=== PATIENT | female | born 1955 | race Caucasian/White ===

== ENCOUNTER 2019-11-15 15:27 | Inpatient (IN) | payer MEDICARE, OTHER ==
[~2019-11-15] VITALS: Ht 149.9 cm; Wt 45.4 kg
[2019-11-15] MEDS ORDERED: ONDANSETRON HCL 4 MG TABLET PO PRN (17:45)
[2019-11-15] MEDS ORDERED: MAGNESIUM HYDROXIDE SUSPENSION 30 ML UDCUP PO PRN (17:45)
[2019-11-15 18:00] VITALS: BP 156/95
[2019-11-15] MEDS: PANTOPRAZOLE SODIUM 40 MG DR TABLET PO SCH (20:35)
[2019-11-15] MEDS: DOCUSATE SODIUM 100 MG CAPSULE PO SCH (20:35)
[2019-11-15] MEDS: SENNA 187 MG TABLET PO SCH (20:35)
[2019-11-15 20:41] VITALS: BP 158/84
[2019-11-15] MEDS ORDERED: AmLODIPine BESYLATE 2.5 MG TABLET PO SCH (21:00)
[2019-11-15] MEDS ORDERED: MELATONIN 3 MG TABLET PO PRN (21:15)
[2019-11-15 22:25] VITALS: BP 150/93
[2019-11-16 00:25] VITALS: BP 154/76
[2019-11-16 08:40] VITALS: BP 156/66
[2019-11-16] MEDS: MULTIVITAMINS WITH MINERALS, THERAPEUTIC TABLET PO SCH (08:44)
[2019-11-16] MEDS: LISINOPRIL 20 MG TABLET PO SCH (08:44)
[2019-11-16] MEDS: OMEGA-3/DHA/EPA/FISH OIL 1,000 MG CAPSULE PO SCH (08:44)
[2019-11-16] MEDS: DOCUSATE SODIUM 100 MG CAPSULE PO SCH ×2 (08:44→21:02)
[2019-11-16] MEDS: ASPIRIN 325 MG EC TABLET PO SCH (08:44)
[2019-11-16 08:45] LABS: BASOPHILS % (AUTO) 0.9 % (0.0-2.0); EOSINOPHILS % (AUTO) 1.6 % (1.0-6.0); HEMATOCRIT 42.3 % (36-46); LYMPHOCYTES # (AUTO) 2.1 K/uL (1.0-4.8); LYMPHOCYTES % (AUTO) 22.8 % (22.0-44.0); MEAN CORPUSCULAR HEMOGLOBIN 27.2 pg (26.0-34.0); MEAN CORPUSCULAR HGB CONC 33.1 G/dL (31.0-37.0); MEAN CORPUSCULAR VOLUME 82 fL (80-100); MONOCYTES # (AUTO) 0.6 K/uL (0.1-1.0); MONOCYTES % (AUTO) 6.2 % (2.0-9.0); NEUTROPHILS # (AUTO) 6.2 K/uL (1.8-7.7); NEUTROPHILS % (AUTO) 68.5 % (40.0-70.0); PLATELET COUNT (AUTO) 254 K/uL (150-450); RED BLOOD CELL COUNT(AUTO) 5.15 MIL/uL (4.00-5.20); RED CELL DISTRIBUTION WIDTH 13.8 % (11.5-14.5)
[2019-11-16] MEDS: ENOXAPARIN SODIUM 40 MG/0.4 ML PF SYRINGE SQ SCH (08:45)
[2019-11-16] MEDS: POLYETHYLENE GLYCOL 3350 17 GM PACKET PO SCH (08:45)
[2019-11-16] MEDS: CHOLECALCIFEROL (VIT D3) 2,000 UNITS [50 MCG] TABLET PO SCH (08:45)
[2019-11-16 09:16] LABS: ALANINE AMINOTRANSFERASE 70 U/L (12-78); ALBUMIN 3.3 g/dL (3.4-5.0); ALKALINE PHOSPHATASE 74 U/L (46-116); ANION GAP 5 mmol/L (8-16); ASPARTATE AMINOTRANSFERASE 52 U/L (15-37); BILIRUBIN,TOTAL 0.6 mg/dL (0.1-1.0); CALCIUM, TOTAL 9.7 mg/dL (8.8-10.5); CARBON DIOXIDE 27 mmol/L (22-29); CHLORIDE 104 mmol/L (98-107); CREATININE 0.86 mg/dL (0.60-1.30); GLOMERULAR FILTR. RATE CALC > 60 mL/min (>60); GLUCOSE,RANDOM 116 mg/dL (70-110); POTASSIUM 3.7 mmol/L (3.5-5.1); SODIUM SERUM 136 mmol/L (136-145); TOTAL PROTEIN, SERUM 6.4 g/dL (6.4-8.2); UREA NITROGEN, BLOOD 18 mg/dL (7-18)
[2019-11-16 16:00] VITALS: BP 156/90
[2019-11-16 16:35] VITALS: BP 156/90
[2019-11-16 20:47] VITALS: BP 175/82
[2019-11-16] MEDS: SENNA 187 MG TABLET PO SCH (21:02)
[2019-11-16] MEDS: AmLODIPine BESYLATE 5 MG TABLET PO SCH (21:02)
[2019-11-16] MEDS: PANTOPRAZOLE SODIUM 40 MG DR TABLET PO SCH (21:02)
[2019-11-16 22:13] VITALS: BP 173/81
[2019-11-17 04:00] VITALS: BP 173/76
[2019-11-17 06:00] VITALS: BP 126/71
[2019-11-17 07:54] VITALS: BP 169/76
[2019-11-17] MEDS: DOCUSATE SODIUM 100 MG CAPSULE PO SCH ×2 (08:30→20:01)
[2019-11-17] MEDS: OMEGA-3/DHA/EPA/FISH OIL 1,000 MG CAPSULE PO SCH (08:30)
[2019-11-17] MEDS: LISINOPRIL 20 MG TABLET PO SCH (08:30)
[2019-11-17] MEDS: MULTIVITAMINS WITH MINERALS, THERAPEUTIC TABLET PO SCH (08:30)
[2019-11-17] MEDS: ASPIRIN 325 MG EC TABLET PO SCH (08:30)
[2019-11-17] MEDS: CHOLECALCIFEROL (VIT D3) 2,000 UNITS [50 MCG] TABLET PO SCH (08:31)
[2019-11-17] MEDS: ENOXAPARIN SODIUM 40 MG/0.4 ML PF SYRINGE SQ SCH (08:31)
[2019-11-17] MEDS: POLYETHYLENE GLYCOL 3350 17 GM PACKET PO SCH (08:31)
[2019-11-17 15:00] VITALS: BP 150/69
[2019-11-17] MEDS: ACETAMINOPHEN 325 MG TABLET PO PRN (15:29)
[2019-11-17] MEDS: AmLODIPine BESYLATE 5 MG TABLET PO SCH (20:01)
[2019-11-17] MEDS: MELATONIN 5 MG TABLET PO PRN (20:01)
[2019-11-17] MEDS: SENNA 187 MG TABLET PO SCH (20:01)
[2019-11-17] MEDS: PANTOPRAZOLE SODIUM 40 MG DR TABLET PO SCH (20:01)
[2019-11-18 00:36] VITALS: BP 165/76
[2019-11-18 05:03] VITALS: BP 145/71
[2019-11-18] MEDS: POLYETHYLENE GLYCOL 3350 17 GM PACKET PO SCH (08:53)
[2019-11-18] MEDS: DOCUSATE SODIUM 100 MG CAPSULE PO SCH ×2 (08:53→20:53)
[2019-11-18] MEDS: OMEGA-3/DHA/EPA/FISH OIL 1,000 MG CAPSULE PO SCH (08:53)
[2019-11-18] MEDS: LISINOPRIL 20 MG TABLET PO SCH (08:53)
[2019-11-18] MEDS: ENOXAPARIN SODIUM 40 MG/0.4 ML PF SYRINGE SQ SCH (08:54)
[2019-11-18] MEDS: MULTIVITAMINS WITH MINERALS, THERAPEUTIC TABLET PO SCH (08:54)
[2019-11-18] MEDS: CHOLECALCIFEROL (VIT D3) 2,000 UNITS [50 MCG] TABLET PO SCH (08:54)
[2019-11-18] MEDS: ASPIRIN 325 MG EC TABLET PO SCH (08:54)
[2019-11-18 09:23] VITALS: BP 146/71
[2019-11-18 15:30] VITALS: BP 133/73
[2019-11-18 20:50] VITALS: BP 159/92
[2019-11-18] MEDS: MELATONIN 5 MG TABLET PO PRN (20:53)
[2019-11-18] MEDS: SENNA 187 MG TABLET PO SCH (20:53)
[2019-11-18] MEDS: AmLODIPine BESYLATE 5 MG TABLET PO SCH (20:53)
[2019-11-18] MEDS: PANTOPRAZOLE SODIUM 40 MG DR TABLET PO SCH (20:53)
[2019-11-19] VITALS (7 sets, daily range): BP systolic 137–172; BP diastolic 73–89
[2019-11-19] MEDS: HydrALAZINE HCL 25 MG TABLET PO PRN (00:45)
[2019-11-19] MEDS: ASPIRIN 325 MG EC TABLET PO SCH (08:14)
[2019-11-19] MEDS: LISINOPRIL 20 MG TABLET PO SCH (08:14)
[2019-11-19] MEDS: DOCUSATE SODIUM 100 MG CAPSULE PO SCH ×2 (08:14→20:24)
[2019-11-19] MEDS: CHOLECALCIFEROL (VIT D3) 2,000 UNITS [50 MCG] TABLET PO SCH (08:14)
[2019-11-19] MEDS: MULTIVITAMINS WITH MINERALS, THERAPEUTIC TABLET PO SCH (08:14)
[2019-11-19] MEDS: OMEGA-3/DHA/EPA/FISH OIL 1,000 MG CAPSULE PO SCH (08:14)
[2019-11-19] MEDS: POLYETHYLENE GLYCOL 3350 17 GM PACKET PO SCH (08:14)
[2019-11-19] MEDS: ENOXAPARIN SODIUM 40 MG/0.4 ML PF SYRINGE SQ SCH (08:15)
[2019-11-19] MEDS: AmLODIPine BESYLATE 10 MG TABLET PO SCH (20:24)
[2019-11-19] MEDS: SENNA 187 MG TABLET PO SCH (20:24)
[2019-11-19] MEDS: SIMVASTATIN 40 MG TABLET PO SCH (20:24)
[2019-11-19] MEDS: PANTOPRAZOLE SODIUM 40 MG DR TABLET PO SCH (20:24)
[2019-11-19] MEDS: MELATONIN 5 MG TABLET PO PRN (20:24)
[2019-11-20 07:21] VITALS: BP 151/72
[2019-11-20] MEDS: ASPIRIN 325 MG EC TABLET PO SCH (08:09)
[2019-11-20] MEDS: DOCUSATE SODIUM 100 MG CAPSULE PO SCH ×2 (08:10→21:19)
[2019-11-20] MEDS: MULTIVITAMINS WITH MINERALS, THERAPEUTIC TABLET PO SCH (08:10)
[2019-11-20] MEDS: OMEGA-3/DHA/EPA/FISH OIL 1,000 MG CAPSULE PO SCH (08:10)
[2019-11-20] MEDS: LISINOPRIL 20 MG TABLET PO SCH (08:10)
[2019-11-20] MEDS: CHOLECALCIFEROL (VIT D3) 2,000 UNITS [50 MCG] TABLET PO SCH (08:10)
[2019-11-20] MEDS: ENOXAPARIN SODIUM 40 MG/0.4 ML PF SYRINGE SQ SCH (08:10)
[2019-11-20] MEDS: POLYETHYLENE GLYCOL 3350 17 GM PACKET PO SCH (08:10)
[2019-11-20] MEDS: HydrALAZINE HCL 25 MG TABLET PO PRN (16:04)
[2019-11-20 16:28] VITALS: BP 175/84
[2019-11-20 18:00] VITALS: BP 157/71
[2019-11-20] MEDS: SENNA 187 MG TABLET PO SCH (21:19)
[2019-11-20] MEDS: SIMVASTATIN 40 MG TABLET PO SCH (21:19)
[2019-11-20] MEDS: MELATONIN 5 MG TABLET PO PRN (21:19)
[2019-11-20] MEDS: PANTOPRAZOLE SODIUM 40 MG DR TABLET PO SCH (21:19)
[2019-11-20] MEDS: AmLODIPine BESYLATE 10 MG TABLET PO SCH (21:19)
[2019-11-21 00:12] VITALS: BP 160/72
[2019-11-21 07:30] VITALS: BP 148/77
[2019-11-21] MEDS: ASPIRIN 325 MG EC TABLET PO SCH (08:22)
[2019-11-21] MEDS: MULTIVITAMINS WITH MINERALS, THERAPEUTIC TABLET PO SCH (08:23)
[2019-11-21] MEDS: OMEGA-3/DHA/EPA/FISH OIL 1,000 MG CAPSULE PO SCH (08:23)
[2019-11-21] MEDS: LISINOPRIL 20 MG TABLET PO SCH (08:23)
[2019-11-21] MEDS: DOCUSATE SODIUM 100 MG CAPSULE PO SCH ×2 (08:23→20:45)
[2019-11-21] MEDS: POLYETHYLENE GLYCOL 3350 17 GM PACKET PO SCH (08:23)
[2019-11-21] MEDS: ENOXAPARIN SODIUM 40 MG/0.4 ML PF SYRINGE SQ SCH (08:23)
[2019-11-21] MEDS: CHOLECALCIFEROL (VIT D3) 2,000 UNITS [50 MCG] TABLET PO SCH (08:23)
[2019-11-21] MEDS ORDERED: LORazepam 1 MG TABLET PO PRN (12:00)
[2019-11-21 15:00] VITALS: BP 145/77
[2019-11-21] MEDS: AmLODIPine BESYLATE 10 MG TABLET PO SCH (20:44)
[2019-11-21] MEDS: MELATONIN 5 MG TABLET PO PRN (20:45)
[2019-11-21] MEDS: PANTOPRAZOLE SODIUM 40 MG DR TABLET PO SCH (20:45)
[2019-11-21] MEDS: SENNA 187 MG TABLET PO SCH (20:45)
[2019-11-21] MEDS: SIMVASTATIN 40 MG TABLET PO SCH (20:45)
[2019-11-21 20:46] VITALS: BP 151/78
[2019-11-22 03:00] VITALS: BP 126/70
[2019-11-22 07:40] VITALS: BP 143/71
[2019-11-22] MEDS: LISINOPRIL 20 MG TABLET PO SCH (08:36)
[2019-11-22] MEDS: MULTIVITAMINS WITH MINERALS, THERAPEUTIC TABLET PO SCH (08:36)
[2019-11-22] MEDS: OMEGA-3/DHA/EPA/FISH OIL 1,000 MG CAPSULE PO SCH (08:36)
[2019-11-22] MEDS: DOCUSATE SODIUM 100 MG CAPSULE PO SCH ×2 (08:36→20:05)
[2019-11-22] MEDS: ENOXAPARIN SODIUM 40 MG/0.4 ML PF SYRINGE SQ SCH (08:36)
[2019-11-22] MEDS: ASPIRIN 325 MG EC TABLET PO SCH (08:36)
[2019-11-22] MEDS: POLYETHYLENE GLYCOL 3350 17 GM PACKET PO SCH (08:38)
[2019-11-22] MEDS: CHOLECALCIFEROL (VIT D3) 2,000 UNITS [50 MCG] TABLET PO SCH (08:38)
[2019-11-22] MEDS: FLUoxetine HCL 10 MG CAPSULE PO SCH (12:24)
[2019-11-22 16:45] VITALS: BP 155/76
[2019-11-22] MEDS: PANTOPRAZOLE SODIUM 40 MG DR TABLET PO SCH (20:05)
[2019-11-22] MEDS: AmLODIPine BESYLATE 10 MG TABLET PO SCH (20:05)
[2019-11-22] MEDS: SENNA 187 MG TABLET PO SCH (20:05)
[2019-11-22] MEDS: SIMVASTATIN 40 MG TABLET PO SCH (20:05)
[2019-11-22] MEDS: MELATONIN 5 MG TABLET PO PRN (20:05)
[2019-11-22 21:25] VITALS: BP 152/78
[2019-11-23 01:18] VITALS: BP 131/72
[2019-11-23 07:30] VITALS: BP 115/68
[2019-11-23] MEDS: FLUoxetine HCL 10 MG CAPSULE PO SCH (07:47)
[2019-11-23] MEDS: MULTIVITAMINS WITH MINERALS, THERAPEUTIC TABLET PO SCH (07:47)
[2019-11-23] MEDS: OMEGA-3/DHA/EPA/FISH OIL 1,000 MG CAPSULE PO SCH (07:47)
[2019-11-23] MEDS: ENOXAPARIN SODIUM 40 MG/0.4 ML PF SYRINGE SQ SCH (07:47)
[2019-11-23] MEDS: CHOLECALCIFEROL (VIT D3) 2,000 UNITS [50 MCG] TABLET PO SCH (07:47)
[2019-11-23] MEDS: ASPIRIN 325 MG EC TABLET PO SCH (07:47)
[2019-11-23] MEDS: LISINOPRIL 20 MG TABLET PO SCH (07:47)
[2019-11-23] MEDS: DOCUSATE SODIUM 100 MG CAPSULE PO SCH ×2 (07:48→21:08)
[2019-11-23] MEDS: POLYETHYLENE GLYCOL 3350 17 GM PACKET PO SCH (07:48)
[2019-11-23 16:01] VITALS: BP 161/84
[2019-11-23 21:07] VITALS: BP 146/70
[2019-11-23] MEDS: AmLODIPine BESYLATE 10 MG TABLET PO SCH (21:08)
[2019-11-23] MEDS: SIMVASTATIN 40 MG TABLET PO SCH (21:08)
[2019-11-23] MEDS: PANTOPRAZOLE SODIUM 40 MG DR TABLET PO SCH (21:08)
[2019-11-23] MEDS: SENNA 187 MG TABLET PO SCH (21:09)
[2019-11-23] MEDS: MELATONIN 5 MG TABLET PO PRN (21:09)
[2019-11-24] VITALS: BP 140/65
[2019-11-24 07:30] VITALS: BP 137/70
[2019-11-24] MEDS: POLYETHYLENE GLYCOL 3350 17 GM PACKET PO SCH (09:00)
[2019-11-24] MEDS: ASPIRIN 325 MG EC TABLET PO SCH (09:34)
[2019-11-24] MEDS: OMEGA-3/DHA/EPA/FISH OIL 1,000 MG CAPSULE PO SCH (09:35)
[2019-11-24] MEDS: CHOLECALCIFEROL (VIT D3) 2,000 UNITS [50 MCG] TABLET PO SCH (09:35)
[2019-11-24] MEDS: ENOXAPARIN SODIUM 40 MG/0.4 ML PF SYRINGE SQ SCH (09:35)
[2019-11-24] MEDS: MULTIVITAMINS WITH MINERALS, THERAPEUTIC TABLET PO SCH (09:35)
[2019-11-24] MEDS: FLUoxetine HCL 10 MG CAPSULE PO SCH (09:35)
[2019-11-24] MEDS: DOCUSATE SODIUM 100 MG CAPSULE PO SCH ×2 (09:35→20:19)
[2019-11-24] MEDS: LISINOPRIL 20 MG TABLET PO SCH (09:35)
[2019-11-24 15:23] VITALS: BP 142/67
[2019-11-24] MEDS: PANTOPRAZOLE SODIUM 40 MG DR TABLET PO SCH (20:19)
[2019-11-24] MEDS: MELATONIN 5 MG TABLET PO PRN (20:19)
[2019-11-24] MEDS: SENNA 187 MG TABLET PO SCH (20:19)
[2019-11-24] MEDS: SIMVASTATIN 40 MG TABLET PO SCH (20:19)
[2019-11-24] MEDS: AmLODIPine BESYLATE 10 MG TABLET PO SCH (20:20)
[2019-11-24 23:30] VITALS: BP 145/88
[2019-11-25 08:09] VITALS: BP 129/73
[2019-11-25] MEDS: CHOLECALCIFEROL (VIT D3) 2,000 UNITS [50 MCG] TABLET PO SCH (08:10)
[2019-11-25] MEDS: LISINOPRIL 20 MG TABLET PO SCH (08:10)
[2019-11-25] MEDS: DOCUSATE SODIUM 100 MG CAPSULE PO SCH ×2 (08:10→21:08)
[2019-11-25] MEDS: FLUoxetine HCL 10 MG CAPSULE PO SCH (08:10)
[2019-11-25] MEDS: POLYETHYLENE GLYCOL 3350 17 GM PACKET PO SCH (08:10)
[2019-11-25] MEDS: ENOXAPARIN SODIUM 40 MG/0.4 ML PF SYRINGE SQ SCH (08:10)
[2019-11-25] MEDS: OMEGA-3/DHA/EPA/FISH OIL 1,000 MG CAPSULE PO SCH (08:10)
[2019-11-25] MEDS: MULTIVITAMINS WITH MINERALS, THERAPEUTIC TABLET PO SCH (08:10)
[2019-11-25] MEDS: ASPIRIN 325 MG EC TABLET PO SCH (08:10)
[2019-11-25] MEDS ORDERED: DOCU-275 PO (11:07)
[2019-11-25] MEDS ORDERED: OMEG-135 PO (11:07)
[2019-11-25] MEDS ORDERED: ASPI-1149 PO (11:07)
[2019-11-25] MEDS ORDERED: POLY17PO47 PO (11:16)
[2019-11-25] MEDS ORDERED: MULT-1119 PO (11:16)
[2019-11-25] MEDS ORDERED: PROZ10 PO (11:16)
[2019-11-25] MEDS ORDERED: PANT-31 PO (11:20)
[2019-11-25] MEDS ORDERED: AMLO-258 PO (11:20)
[2019-11-25] MEDS ORDERED: LISI-662 PO (11:20)
[2019-11-25] MEDS ORDERED: CHOL200016 PO (11:20)
[2019-11-25] MEDS ORDERED: SIMV-261 PO (11:20)
[2019-11-25 16:08] VITALS: BP 132/66
[2019-11-25 21:00] VITALS: BP 152/73
[2019-11-25] MEDS: SENNA 187 MG TABLET PO SCH (21:08)
[2019-11-25] MEDS: PANTOPRAZOLE SODIUM 40 MG DR TABLET PO SCH (21:08)
[2019-11-25] MEDS: AmLODIPine BESYLATE 10 MG TABLET PO SCH (21:09)
[2019-11-25] MEDS: SIMVASTATIN 40 MG TABLET PO SCH (21:09)
[2019-11-25] MEDS: MELATONIN 5 MG TABLET PO PRN (21:12)
[2019-11-26] VITALS: BP 127/77
[2019-11-26 07:22] VITALS: BP 126/73
[2019-11-26] MEDS: OMEGA-3/DHA/EPA/FISH OIL 1,000 MG CAPSULE PO SCH (07:43)
[2019-11-26] MEDS: MULTIVITAMINS WITH MINERALS, THERAPEUTIC TABLET PO SCH (07:44)
[2019-11-26] MEDS: CHOLECALCIFEROL (VIT D3) 2,000 UNITS [50 MCG] TABLET PO SCH (07:44)
[2019-11-26] MEDS: ENOXAPARIN SODIUM 40 MG/0.4 ML PF SYRINGE SQ SCH (07:44)
[2019-11-26] MEDS: FLUoxetine HCL 10 MG CAPSULE PO SCH (07:44)
[2019-11-26] MEDS: POLYETHYLENE GLYCOL 3350 17 GM PACKET PO SCH (07:44)
[2019-11-26] MEDS: ASPIRIN 325 MG EC TABLET PO SCH (07:44)
[2019-11-26] MEDS: LISINOPRIL 20 MG TABLET PO SCH (07:44)
[2019-11-26] MEDS: DOCUSATE SODIUM 100 MG CAPSULE PO SCH ×2 (07:44→21:19)
[2019-11-26] MEDS: ACETAMINOPHEN 325 MG TABLET PO PRN (17:42)
[2019-11-26 17:45] VITALS: BP 129/68
[2019-11-26] MEDS: SENNA 187 MG TABLET PO SCH (21:19)
[2019-11-26] MEDS: PANTOPRAZOLE SODIUM 40 MG DR TABLET PO SCH (21:19)
[2019-11-26] MEDS: AmLODIPine BESYLATE 10 MG TABLET PO SCH (21:19)
[2019-11-26] MEDS: SIMVASTATIN 40 MG TABLET PO SCH (21:19)
[2019-11-26] MEDS: MELATONIN 5 MG TABLET PO PRN (21:19)
[2019-11-27 02:38] VITALS: BP 127/66
[2019-11-27 08:43] VITALS: BP 121/73
[2019-11-27] MEDS: CHOLECALCIFEROL (VIT D3) 2,000 UNITS [50 MCG] TABLET PO SCH (08:52)
[2019-11-27] MEDS: ENOXAPARIN SODIUM 40 MG/0.4 ML PF SYRINGE SQ SCH (08:53)
[2019-11-27] MEDS: DOCUSATE SODIUM 100 MG CAPSULE PO SCH ×2 (08:53→20:30)
[2019-11-27] MEDS: FLUoxetine HCL 10 MG CAPSULE PO SCH (08:53)
[2019-11-27] MEDS: OMEGA-3/DHA/EPA/FISH OIL 1,000 MG CAPSULE PO SCH (08:53)
[2019-11-27] MEDS: POLYETHYLENE GLYCOL 3350 17 GM PACKET PO SCH (08:53)
[2019-11-27] MEDS: ASPIRIN 325 MG EC TABLET PO SCH (08:53)
[2019-11-27] MEDS: MULTIVITAMINS WITH MINERALS, THERAPEUTIC TABLET PO SCH (08:53)
[2019-11-27] MEDS: LISINOPRIL 20 MG TABLET PO SCH (08:53)
[2019-11-27 15:00] VITALS: BP 135/75
[2019-11-27 20:27] VITALS: BP 137/70
[2019-11-27] MEDS: SENNA 187 MG TABLET PO SCH (20:30)
[2019-11-27] MEDS: MELATONIN 5 MG TABLET PO PRN (20:30)
[2019-11-27] MEDS: SIMVASTATIN 40 MG TABLET PO SCH (20:31)
[2019-11-27] MEDS: AmLODIPine BESYLATE 10 MG TABLET PO SCH (20:31)
[2019-11-27] MEDS: PANTOPRAZOLE SODIUM 40 MG DR TABLET PO SCH (20:31)
[2019-11-28 01:19] VITALS: BP 146/73
[2019-11-28 07:15] LABS: BASOPHILS % (AUTO) 2.6 % (0.0-2.0); EOSINOPHILS % (AUTO) 6.2 % (1.0-6.0); HEMATOCRIT 38.8 % (36-46); HEMOGLOBIN 12.8 g/dL (12.0-16.0); LYMPHOCYTES # (AUTO) 1.2 K/uL (1.0-4.8); LYMPHOCYTES % (AUTO) 20.5 % (22.0-44.0); MEAN CORPUSCULAR HEMOGLOBIN 27.4 pg (26.0-34.0); MEAN CORPUSCULAR VOLUME 83 fL (80-100); MONOCYTES # (AUTO) 0.5 K/uL (0.1-1.0); NEUTROPHILS # (AUTO) 3.8 K/uL (1.8-7.7); NEUTROPHILS % (AUTO) 62.7 % (40.0-70.0); PLATELET COUNT (AUTO) 277 K/uL (150-450); RED BLOOD CELL COUNT(AUTO) 4.67 MIL/uL (4.00-5.20); RED CELL DISTRIBUTION WIDTH 14.1 % (11.5-14.5)
[2019-11-28 07:22] LABS: ALANINE AMINOTRANSFERASE 41 U/L (12-78); ALKALINE PHOSPHATASE 84 U/L (46-116); ANION GAP 5 mmol/L (8-16); ASPARTATE AMINOTRANSFERASE 32 U/L (15-37); BILIRUBIN,TOTAL 0.3 mg/dL (0.1-1.0); CALCIUM, TOTAL 9.6 mg/dL (8.8-10.5); CARBON DIOXIDE 32 mmol/L (22-29); CHLORIDE 108 mmol/L (98-107); CREATININE 0.73 mg/dL (0.60-1.30); GLOMERULAR FILTR. RATE CALC > 60 mL/min (>60); GLUCOSE,RANDOM 118 mg/dL (70-110); POTASSIUM 3.1 mmol/L (3.5-5.1); SODIUM SERUM 145 mmol/L (136-145); TOTAL PROTEIN, SERUM 6.3 g/dL (6.4-8.2); UREA NITROGEN, BLOOD 8 mg/dL (7-18)
[2019-11-28 08:23] VITALS: BP 134/69
[2019-11-28] MEDS: MULTIVITAMINS WITH MINERALS, THERAPEUTIC TABLET PO SCH (08:27)
[2019-11-28] MEDS: OMEGA-3/DHA/EPA/FISH OIL 1,000 MG CAPSULE PO SCH (08:27)
[2019-11-28] MEDS: DOCUSATE SODIUM 100 MG CAPSULE PO SCH ×2 (08:28→21:00)
[2019-11-28] MEDS: LISINOPRIL 20 MG TABLET PO SCH (08:28)
[2019-11-28] MEDS: CHOLECALCIFEROL (VIT D3) 2,000 UNITS [50 MCG] TABLET PO SCH (08:29)
[2019-11-28] MEDS: FLUoxetine HCL 10 MG CAPSULE PO SCH (08:29)
[2019-11-28] MEDS: ENOXAPARIN SODIUM 40 MG/0.4 ML PF SYRINGE SQ SCH (08:30)
[2019-11-28] MEDS: ASPIRIN 325 MG EC TABLET PO SCH (08:32)
[2019-11-28] MEDS: POLYETHYLENE GLYCOL 3350 17 GM PACKET PO SCH (08:32)
[2019-11-28] MEDS ORDERED: POTASSIUM CHLORIDE 10 MEQ ER TABLET PO ONE (11:30)
[2019-11-28 18:49] VITALS: BP 145/76
[2019-11-28] MEDS: MELATONIN 5 MG TABLET PO PRN (21:00)
[2019-11-28] MEDS: SIMVASTATIN 40 MG TABLET PO SCH (21:00)
[2019-11-28] MEDS: PANTOPRAZOLE SODIUM 40 MG DR TABLET PO SCH (21:00)
[2019-11-28] MEDS: SENNA 187 MG TABLET PO SCH (21:00)
[2019-11-28] MEDS: AmLODIPine BESYLATE 10 MG TABLET PO SCH (21:00)
[2019-11-29 00:38] VITALS: BP 148/78
[2019-11-29 07:00] VITALS: BP 142/63
[2019-11-29] MEDS: OMEGA-3/DHA/EPA/FISH OIL 1,000 MG CAPSULE PO SCH (08:05)
[2019-11-29] MEDS: ASPIRIN 325 MG EC TABLET PO SCH (08:05)
[2019-11-29] MEDS: LISINOPRIL 20 MG TABLET PO SCH (08:06)
[2019-11-29] MEDS: ENOXAPARIN SODIUM 40 MG/0.4 ML PF SYRINGE SQ SCH (08:06)
[2019-11-29] MEDS: CHOLECALCIFEROL (VIT D3) 2,000 UNITS [50 MCG] TABLET PO SCH (08:06)
[2019-11-29] MEDS: FLUoxetine HCL 10 MG CAPSULE PO SCH (08:06)
[2019-11-29] MEDS: MULTIVITAMINS WITH MINERALS, THERAPEUTIC TABLET PO SCH (08:06)
[2019-11-29] MEDS: POTASSIUM CHLORIDE 20 MEQ ER TABLET PO SCH (12:26)
[2019-11-29] MEDS: POLYETHYLENE GLYCOL 3350 17 GM PACKET PO SCH (13:07)
[2019-11-29] MEDS: DOCUSATE SODIUM 100 MG CAPSULE PO SCH ×2 (13:07→20:28)
[2019-11-29 18:47] VITALS: BP 155/84
[2019-11-29] MEDS: AmLODIPine BESYLATE 10 MG TABLET PO SCH (20:28)
[2019-11-29] MEDS: SENNA 187 MG TABLET PO SCH (20:28)
[2019-11-29] MEDS: PANTOPRAZOLE SODIUM 40 MG DR TABLET PO SCH (20:30)
[2019-11-29] MEDS: MELATONIN 5 MG TABLET PO PRN (20:31)
[2019-11-29] MEDS: SIMVASTATIN 40 MG TABLET PO SCH (20:32)
[2019-11-29 23:30] VITALS: BP 126/62
[2019-11-30 09:00] VITALS: BP 148/70
[2019-11-30] MEDS: FLUoxetine HCL 10 MG CAPSULE PO SCH (09:15)
[2019-11-30] MEDS: MULTIVITAMINS WITH MINERALS, THERAPEUTIC TABLET PO SCH (09:15)
[2019-11-30] MEDS: POTASSIUM CHLORIDE 20 MEQ ER TABLET PO SCH (09:15)
[2019-11-30] MEDS: CHOLECALCIFEROL (VIT D3) 2,000 UNITS [50 MCG] TABLET PO SCH (09:15)
[2019-11-30] MEDS: OMEGA-3/DHA/EPA/FISH OIL 1,000 MG CAPSULE PO SCH (09:15)
[2019-11-30] MEDS: DOCUSATE SODIUM 100 MG CAPSULE PO SCH ×2 (09:15→21:11)
[2019-11-30] MEDS: ASPIRIN 325 MG EC TABLET PO SCH (09:16)
[2019-11-30] MEDS: LISINOPRIL 20 MG TABLET PO SCH (09:16)
[2019-11-30] MEDS: ENOXAPARIN SODIUM 40 MG/0.4 ML PF SYRINGE SQ SCH (09:17)
[2019-11-30] MEDS: POLYETHYLENE GLYCOL 3350 17 GM PACKET PO SCH (09:17)
[2019-11-30 15:30] VITALS: BP 126/65
[2019-11-30 20:30] VITALS: BP 139/69
[2019-11-30] MEDS: AmLODIPine BESYLATE 10 MG TABLET PO SCH (21:11)
[2019-11-30] MEDS: PANTOPRAZOLE SODIUM 40 MG DR TABLET PO SCH (21:11)
[2019-11-30] MEDS: SENNA 187 MG TABLET PO SCH (21:11)
[2019-11-30] MEDS: SIMVASTATIN 40 MG TABLET PO SCH (21:11)
[2019-11-30] MEDS: MELATONIN 5 MG TABLET PO PRN (21:11)
[2019-11-30 23:26] VITALS: BP_SYST 0
[2019-12-01 02:57] VITALS: BP 144/66
[2019-12-01 07:02] VITALS: BP 131/62
[2019-12-01] MEDS: MULTIVITAMINS WITH MINERALS, THERAPEUTIC TABLET PO SCH (07:48)
[2019-12-01] MEDS: ENOXAPARIN SODIUM 40 MG/0.4 ML PF SYRINGE SQ SCH (07:48)
[2019-12-01] MEDS: POLYETHYLENE GLYCOL 3350 17 GM PACKET PO SCH (07:48)
[2019-12-01] MEDS: OMEGA-3/DHA/EPA/FISH OIL 1,000 MG CAPSULE PO SCH (07:49)
[2019-12-01] MEDS: LISINOPRIL 20 MG TABLET PO SCH (07:49)
[2019-12-01] MEDS: FLUoxetine HCL 10 MG CAPSULE PO SCH (07:49)
[2019-12-01] MEDS: CHOLECALCIFEROL (VIT D3) 2,000 UNITS [50 MCG] TABLET PO SCH (07:49)
[2019-12-01] MEDS: ASPIRIN 325 MG EC TABLET PO SCH (07:49)
[2019-12-01] MEDS: POTASSIUM CHLORIDE 20 MEQ ER TABLET PO SCH (07:49)
[2019-12-01] MEDS: DOCUSATE SODIUM 100 MG CAPSULE PO SCH ×2 (07:49→21:25)
[2019-12-01 15:20] VITALS: BP 146/76
[2019-12-01] MEDS: AmLODIPine BESYLATE 10 MG TABLET PO SCH (21:24)
[2019-12-01] MEDS: PANTOPRAZOLE SODIUM 40 MG DR TABLET PO SCH (21:24)
[2019-12-01] MEDS: SIMVASTATIN 40 MG TABLET PO SCH (21:24)
[2019-12-01] MEDS: SENNA 187 MG TABLET PO SCH (21:25)
[2019-12-01] MEDS: MELATONIN 5 MG TABLET PO PRN (21:28)
[2019-12-01 21:29] VITALS: BP 163/91
[2019-12-02 01:20] VITALS: BP 135/66
[2019-12-02 07:00] VITALS: BP 135/59
[2019-12-02] MEDS: POLYETHYLENE GLYCOL 3350 17 GM PACKET PO SCH (07:52)
[2019-12-02] MEDS: CHOLECALCIFEROL (VIT D3) 2,000 UNITS [50 MCG] TABLET PO SCH (07:52)
[2019-12-02] MEDS: ASPIRIN 325 MG EC TABLET PO SCH (07:52)
[2019-12-02] MEDS: DOCUSATE SODIUM 100 MG CAPSULE PO SCH ×2 (07:53→20:42)
[2019-12-02] MEDS: OMEGA-3/DHA/EPA/FISH OIL 1,000 MG CAPSULE PO SCH (07:53)
[2019-12-02] MEDS: POTASSIUM CHLORIDE 20 MEQ ER TABLET PO SCH (07:53)
[2019-12-02] MEDS: FLUoxetine HCL 10 MG CAPSULE PO SCH (07:53)
[2019-12-02] MEDS: LISINOPRIL 20 MG TABLET PO SCH (07:53)
[2019-12-02] MEDS: ENOXAPARIN SODIUM 40 MG/0.4 ML PF SYRINGE SQ SCH (07:53)
[2019-12-02] MEDS: MULTIVITAMINS WITH MINERALS, THERAPEUTIC TABLET PO SCH (07:53)
[2019-12-02 20:41] VITALS: BP 120/62
[2019-12-02] MEDS: PANTOPRAZOLE SODIUM 40 MG DR TABLET PO SCH (20:42)
[2019-12-02] MEDS: SENNA 187 MG TABLET PO SCH (20:43)
[2019-12-02] MEDS: MELATONIN 5 MG TABLET PO PRN (20:43)
[2019-12-02] MEDS: SIMVASTATIN 40 MG TABLET PO SCH (20:43)
[2019-12-02] MEDS: AmLODIPine BESYLATE 10 MG TABLET PO SCH (20:43)
[2019-12-02 20:45] VITALS: BP 120/62
[2019-12-02] MEDS: ACETAMINOPHEN 325 MG TABLET PO PRN (20:46)
[2019-12-03 03:01] VITALS: BP 115/62
[2019-12-03 07:00] LABS: ANION GAP 4 mmol/L (8-16); CALCIUM, TOTAL 9.5 mg/dL (8.8-10.5); CARBON DIOXIDE 31 mmol/L (22-29); CHLORIDE 108 mmol/L (98-107); CREATININE 0.89 mg/dL (0.60-1.30); GLOMERULAR FILTR. RATE CALC > 60 mL/min (>60); GLUCOSE,RANDOM 119 mg/dL (70-110); POTASSIUM 4.1 mmol/L (3.5-5.1); SODIUM SERUM 143 mmol/L (136-145); UREA NITROGEN, BLOOD 12 mg/dL (7-18)
[2019-12-03] MEDS: OMEGA-3/DHA/EPA/FISH OIL 1,000 MG CAPSULE PO SCH (08:45)
[2019-12-03] MEDS: FLUoxetine HCL 10 MG CAPSULE PO SCH (08:45)
[2019-12-03] MEDS: POLYETHYLENE GLYCOL 3350 17 GM PACKET PO SCH (08:45)
[2019-12-03] MEDS: CHOLECALCIFEROL (VIT D3) 2,000 UNITS [50 MCG] TABLET PO SCH (08:46)
[2019-12-03] MEDS: ASPIRIN 325 MG EC TABLET PO SCH (08:46)
[2019-12-03] MEDS: ENOXAPARIN SODIUM 40 MG/0.4 ML PF SYRINGE SQ SCH (08:49)
[2019-12-03 08:50] VITALS: BP 126/85
[2019-12-03] MEDS: DOCUSATE SODIUM 100 MG CAPSULE PO SCH ×2 (08:50→20:25)
[2019-12-03] MEDS: POTASSIUM CHLORIDE 20 MEQ ER TABLET PO SCH (08:50)
[2019-12-03] MEDS: MULTIVITAMINS WITH MINERALS, THERAPEUTIC TABLET PO SCH (08:50)
[2019-12-03] MEDS: LISINOPRIL 20 MG TABLET PO SCH (08:50)
[2019-12-03 17:04] VITALS: BP 121/60
[2019-12-03] MEDS: PANTOPRAZOLE SODIUM 40 MG DR TABLET PO SCH (20:25)
[2019-12-03] MEDS: MELATONIN 5 MG TABLET PO PRN (20:25)
[2019-12-03] MEDS: SENNA 187 MG TABLET PO SCH (20:25)
[2019-12-03] MEDS: SIMVASTATIN 40 MG TABLET PO SCH (20:25)
[2019-12-03] MEDS: AmLODIPine BESYLATE 10 MG TABLET PO SCH (20:25)
[2019-12-03 20:26] VITALS: BP 130/58
[2019-12-04] VITALS: BP 124/60
[2019-12-04] MEDS ORDERED: POTA20TA83 PO (07:19)
[2019-12-04 08:50] VITALS: BP 129/58
[2019-12-04] MEDS: MULTIVITAMINS WITH MINERALS, THERAPEUTIC TABLET PO SCH (08:57)
[2019-12-04] MEDS: POLYETHYLENE GLYCOL 3350 17 GM PACKET PO SCH (08:57)
[2019-12-04] MEDS: FLUoxetine HCL 10 MG CAPSULE PO SCH (08:57)
[2019-12-04] MEDS: OMEGA-3/DHA/EPA/FISH OIL 1,000 MG CAPSULE PO SCH (08:58)
[2019-12-04] MEDS: CHOLECALCIFEROL (VIT D3) 2,000 UNITS [50 MCG] TABLET PO SCH (08:58)
[2019-12-04] MEDS: ENOXAPARIN SODIUM 40 MG/0.4 ML PF SYRINGE SQ SCH (08:58)
[2019-12-04] MEDS: POTASSIUM CHLORIDE 20 MEQ ER TABLET PO SCH (08:58)
[2019-12-04] MEDS: DOCUSATE SODIUM 100 MG CAPSULE PO SCH ×2 (08:58→21:20)
[2019-12-04] MEDS: LISINOPRIL 20 MG TABLET PO SCH (08:58)
[2019-12-04] MEDS: ASPIRIN 325 MG EC TABLET PO SCH (08:58)
[2019-12-04 16:42] VITALS: BP 130/63
[2019-12-04 21:18] VITALS: BP 163/75
[2019-12-04] MEDS: SENNA 187 MG TABLET PO SCH (21:20)
[2019-12-04] MEDS: AmLODIPine BESYLATE 10 MG TABLET PO SCH (21:20)
[2019-12-04] MEDS: MELATONIN 5 MG TABLET PO PRN (21:20)
[2019-12-04] MEDS: SIMVASTATIN 40 MG TABLET PO SCH (21:20)
[2019-12-04] MEDS: PANTOPRAZOLE SODIUM 40 MG DR TABLET PO SCH (21:20)
[2019-12-05 00:55] VITALS: BP 135/67
[2019-12-05 07:36] LABS: ALBUMIN 2.9 g/dL (3.4-5.0); BILIRUBIN,TOTAL 0.3 mg/dL (0.1-1.0); CALCIUM, TOTAL 9.9 mg/dL (8.8-10.5); CREATININE 0.93 mg/dL (0.60-1.30); POTASSIUM 4.1 mmol/L (3.5-5.1); TOTAL PROTEIN, SERUM 5.9 g/dL (6.4-8.2)
[2019-12-05 07:45] VITALS: BP 139/60
[2019-12-05] MEDS: CHOLECALCIFEROL (VIT D3) 2,000 UNITS [50 MCG] TABLET PO SCH (08:51)
[2019-12-05] MEDS: LISINOPRIL 20 MG TABLET PO SCH (08:51)
[2019-12-05] MEDS: OMEGA-3/DHA/EPA/FISH OIL 1,000 MG CAPSULE PO SCH (08:51)
[2019-12-05] MEDS: MULTIVITAMINS WITH MINERALS, THERAPEUTIC TABLET PO SCH (08:51)
[2019-12-05] MEDS: POTASSIUM CHLORIDE 20 MEQ ER TABLET PO SCH (08:51)
[2019-12-05] MEDS: DOCUSATE SODIUM 100 MG CAPSULE PO SCH (08:51)
[2019-12-05] MEDS: FLUoxetine HCL 10 MG CAPSULE PO SCH (08:51)
[2019-12-05] MEDS: ASPIRIN 325 MG EC TABLET PO SCH (08:51)
[2019-12-05] MEDS: POLYETHYLENE GLYCOL 3350 17 GM PACKET PO SCH (08:52)
[2019-12-05] MEDS: ENOXAPARIN SODIUM 40 MG/0.4 ML PF SYRINGE SQ SCH (08:52)
== END 2019-12-05 14:04 | disposition home health service (06) | DRG 56 ==
LOC: 2WR 17:25
PROVIDERS: ADMIT Physical Medicine & Rehabilitation; ATTEND Physical Medicine & Rehabilitation
DX: I69.354 Hemiplegia and hemiparesis following cerebral infarction affecting left non-dominant side (principal); I63.9 Cerebral infarction, unspecified; E87.1 Hypo-osmolality and hyponatremia; R13.10 Dysphagia, unspecified; R47.1 Dysarthria and anarthria; I10 Essential (primary) hypertension; E55.9 Vitamin D deficiency, unspecified; Z79.82 Long term (current) use of aspirin; Z90.710 Acquired absence of both cervix and uterus; Z91.19 Patient's noncompliance with other medical treatment and regimen
CPT/HCPCS: 74230; 84132; 87081; 92507; 92508; 92526; 92610; 92611; 97110; 97112; 97116; 97150; 97163; 97166; 97530; 97535; 99366; J1650